=== PATIENT | male | born 1985 | race Caucasian/White ===

== ENCOUNTER 2018-06-01 14:13 | Emergency (ER) | payer SELFPAY ==
[2018-06-01 14:15] VITALS: BP 126/83; PULSE 80; RESP 14; TEMP 36.8; O2SAT 97; BMI 28.9
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
== END 2018-06-01 15:02 | disposition home or self-care (01) ==
PROVIDERS: Emergency Provider Emergency Medicine
DX: T21.06XA Burn of unspecified degree of male genital region, initial encounter (principal); X08.8XXA Exposure to other specified smoke, fire and flames, initial encounter; Y93.9 Activity, unspecified; Y92.002 Bathroom of unspecified non-institutional (private) residence as the place of occurrence of the external cause; Y99.9 Unspecified external cause status; Z72.0 Tobacco use
CPT/HCPCS: 99282

== ENCOUNTER 2021-07-14 04:38 | Emergency (ER) | payer MEDICAID, SELFPAY ==
[2021-07-14 04:39] VITALS: BP 125/70; PULSE 64; RESP 18; TEMP 36.7; O2SAT 98; BMI 26.4
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
[2021-07-14] MEDS: Erythromycin Base 1 OPTH.TUBE 1 APPLIC LEFT EYE (05:34)
[2021-07-14] MEDS: Tetracaine 0.5% Ophthalmic Bottle 1 DRP EACH EYE (05:35)
[2021-07-14] MEDS: Fluorescein 1 MG STRIP 1 STRIP LEFT EYE (05:35)
[2021-07-14 05:38] VITALS: BP 125/84; PULSE 64; RESP 18
== END 2021-07-14 05:39 | disposition home or self-care (01) ==
LOC: ED 05:33
PROVIDERS: Emergency Provider Emergency Medicine; Visit Provider Emergency Medicine
DX: S05.02XA Injury of conjunctiva and corneal abrasion without foreign body, left eye, initial encounter (principal); W22.8XXA Striking against or struck by other objects, initial encounter; Y93.H2 Activity, gardening and landscaping; Y99.8 Other external cause status; H10.89 Other conjunctivitis; F17.210 Nicotine dependence, cigarettes, uncomplicated
CPT/HCPCS: 99282